=== PATIENT | male | born 1940 | race Caucasian/White ===

== ENCOUNTER → 2018-01-31 13:16 | Outpatient (CLI) | payer MEDICARE, BC, SELFPAY ==
--- NOTE | 2018-01-31 13:32 | XR_ITS ---
XR chest 2V HISTORY: ITS.REASON: HTN ORDERING PHYSICIAN: Vishnu Valadez MD PATIENT AGE: 77 years COMPARISON: None FINDINGS: The cardiomediastinal silhouette and pulmonary vascularity are within normal limits. No lobar consolidation or collapse. There is a small parenchymal opacity left lung base at 7 mm nonspecific. While millimeter nodular density overlies aortic arch region on the lateral view.. Left subclavian Port-A-Cath is present with the tip in the region of the SVC No acute bony abnormalities. IMPRESSION: 1. No acute finding. 2. Indeterminate 7 mm nodular opacity left lung base. Consider chest CT for more thorough evaluation
[2018-01-31 14:12] LABS: INR 1.03 (0.9-1.1); Prothrombin Time 11.1 seconds (9.4-11.8)
== END ==
PROVIDERS: Visit Provider Family Medicine
DX: Z01.818 Encounter for other preprocedural examination (principal)
CPT/HCPCS: 36415; 71046; 85610; 85730; 93005

== ENCOUNTER → 2018-03-30 14:59 | Outpatient (CLI) | payer MEDICARE, BC, SELFPAY ==
[2018-03-30 15:38] LABS: Blood Urea Nitrogen 24 mg/dL (7-18); Creatinine,Serum 1.79 mg/dL (0.70-1.30); Estimated Glomerular Filt Rate 37 ml/min (>60); GFR (African American) 45 ML/MIN (>60)
== END ==
PROVIDERS: Visit Provider Family Medicine
DX: R91.1 Solitary pulmonary nodule (principal)
CPT/HCPCS: 36415; 82565; 84520

== ENCOUNTER → 2018-04-03 09:23 | Outpatient (CLI) | payer MEDICARE, BC, SELFPAY ==
--- NOTE | 2018-04-03 09:58 | CT_ITS ---
CT chest w con HISTORY: Solitary pulmonary nodule, abnormal chest x-ray ITS.REASON: LUNG NODULE ORDERING PHYSICIAN: Vishnu Valadez MD PATIENT AGE: 77 years COMPARISON: 01/31/2018 TECHNIQUE: Axial images obtained following the administration of 75 mL of Isovue 370 . Sagittal, and coronal reformatted images are also generated and reviewed. All CT scans at the facility use one or more dose reduction, viz: automated exposure control, ma/kV adjustment per patient size (including targeted exams where dose is matched to indication, i.e. head), or iterative reconstruction technique. FINDINGS: No mediastinal or hilar mass or adenopathy. No evidence of aortic aneurysm or central pulmonary embolus. Normal heart size. There is a 3 mm noncalcified nodule right upper lobe inferiorly. A 4 mm groundglass nodules present in the left apex. A 7 x 4 mm parenchymal opacity is present in the left lung base laterally corresponding to the radiographic abnormality and may be due to an area of parenchymal fibrosis. Six-month follow-up suggested to confirm stability. There is mild degree of motion artifact. No lobar consolidation or collapse. No effusions. 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 The stenotic segment measures approximately 1 cm in length. IMPRESSION: 1. Radiographic abnormality corresponds to 7 x 4 mm noncalcified nodular opacity which could represent an area of parenchymal fibrosis. Six-month follow-up suggested. In addition there is a 3 mm right upper lobe nodule and 4 mm groundglass nodule in the left apex. These are nonspecific 2. 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
--- NOTE | 2018-04-03 10:11 | HMH.ITSHM ---
IRBESARTAN HCTZ 300, 12.5MG; METOPROLOL SUCC ER 50MG; CLOPIDOGREL 75MG; TAMSULOSIN HCL 0.4MG; VITAMIN D3; VITAMIN B-12; LORATADINE 10MG; CLOTRIMAZOLE - BETAMETHASONE CREAM; DICLOFENAC SODIUM TOPICAL GEL; CLINDAMYCIN HCL 300MG
== END ==
PROVIDERS: PCP Podiatrist; Visit Provider Family Medicine
DX: R91.1 Solitary pulmonary nodule (principal)
CPT/HCPCS: 71260; Q9967

== ENCOUNTER → 2018-07-09 09:28 | Outpatient (CLI) | payer MEDICARE, BC, SELFPAY ==
--- NOTE | 2018-07-09 10:05 | CT_ITS ---
CT chest w con HISTORY: Follow-up pulmonary nodule ITS.REASON: PULMONARY NODULE ORDERING PHYSICIAN: Referral Provider, PATIENT AGE: 78 years COMPARISON: 04/03/2018 TECHNIQUE: Axial images obtained following the administration of 75 mL of Isovue 370 . Sagittal, and coronal reformatted images are also generated and reviewed. All CT scans at the facility use one or more dose reduction, viz: automated exposure control, ma/kV adjustment per patient size (including targeted exams where dose is matched to indication, i.e. head), or iterative reconstruction technique. FINDINGS: Mediport catheter is in place from left subclavian approach. There is been prior right shoulder replacement. No mediastinal or hilar mass or adenopathy. Coronary artery calcifications are present. No change in the 3 mm noncalcified nodule in the right upper lobe anteriorly image #[id number]. A 4 mm opacity is present in the left lung base. Previously there was some atelectatic change around this nodule causes metallic larger. No suspicious pulmonary nodules evident. No effusions or infiltrates. No acute bony anomalies. Upper abdominal images are unremarkable. IMPRESSION: No suspicious pulmonary nodules evident. Left lower lobe nodular opacity appears less apparent likely due to resolved overlying atelectatic changes adjacent to the benign-appearing nodule.
== END ==
PROVIDERS: PCP Family Medicine; Referring Provider Internal Medicine Hematology & Oncology
DX: C90.00 Multiple myeloma not having achieved remission (principal); R91.1 Solitary pulmonary nodule
CPT/HCPCS: 71260; Q9967

== ENCOUNTER → 2019-01-04 12:32 | Outpatient (CLI) | payer MEDICARE, BC, SELFPAY ==
[2019-01-04 13:00] LABS: Blood Urea Nitrogen 20 mg/dL (7-18); Creatinine,Serum 1.67 mg/dL (0.70-1.30); Estimated Glomerular Filt Rate 40 ml/min (>60); GFR (African American) 49 ML/MIN (>60)
--- NOTE | 2019-01-04 13:40 | CT_ITS ---
CT chest w con HISTORY: Follow-up pulmonary nodule ITS.REASON: LUNG NODULE ORDERING PHYSICIAN: Vishnu Valadez MD PATIENT AGE: 78 years COMPARISON: 07/09/2018 TECHNIQUE: Axial images obtained following the administration of 75 mL of Optiray 350 . Sagittal, and coronal reformatted images are also generated and reviewed. All CT scans at the facility use one or more dose reduction, viz: automated exposure control, ma/kV adjustment per patient size (including targeted exams where dose is matched to indication, i.e. head), or iterative reconstruction technique. FINDINGS: Left subclavian Mediport catheter present. No evidence of aortic aneurysm or central pulmonary embolus. No mediastinal or hilar adenopathy or mass. No change in the 3 mm noncalcified nodule right upper lobe. Calcified granuloma is present in the lingula. No new nodules are evident. There are mild dependent changes in the lung bases. IMPRESSION: Stable CT appearance of the chest. No acute finding. No suspicious pulmonary nodules apparent
== END ==
PROVIDERS: Visit Provider Family Medicine
DX: R91.1 Solitary pulmonary nodule (principal)
CPT/HCPCS: 36415; 71260; 82565; 84520; Q9967

== ENCOUNTER → 2019-04-02 10:11 | Outpatient (POV) | payer MEDICARE, BC, SELFPAY | PROVIDERS: Visit Provider Dermatology | DX: Z00.00 Encounter for general adult medical examination without abnormal findings (principal) ==

== ENCOUNTER → 2019-06-11 15:49 | Outpatient (POV) | payer MEDICARE, BC, SELFPAY | PROVIDERS: Visit Provider Dermatology | DX: Z00.00 Encounter for general adult medical examination without abnormal findings (principal) ==

== ENCOUNTER 2019-06-20 10:40 | Outpatient (CLI) | payer MEDICARE, BC, SELFPAY ==
[2019-06-20 10:47] VITALS: BMI 28.9
[2019-06-20 11:39] LABS: Basophils # 0.1 K/mm3 (0-0.2); Basophils % 0.7 % (0.1-2.0); Eosinophils # 0.1 K/mm3 (0.0-0.4); Eosinophils % 1.8 % (0.1-12.0); Hemoglobin 16.5 g/dL (14.1-18.0); Lymphocytes # 2.6 K/mm3 (0.7-4.5); Lymphocytes % 33.1 % (10-50); Mean Corpuscular HGB Conc 32.4 g/dL (31.8-35.4); Mean Corpuscular Hemoglobin 32.7 pg (27.0-31.2); Mean Corpuscular Volume 100.9 fl (80-94); Monocytes # 0.6 K/mm3 (0.1-1.0); Monocytes % 7.3 % (1.7-9.3); Neutrophils # 4.4 K/mm3 (1.8-7.8); Platelet Count 169 K/mm3 (142-424); Red Blood Count 5.06 M/mm3 (4.60-6.20); Red Cell Distribution Width 13.6 % (11.5-17.5); White Blood Count 7.8 K/mm3 (4.8-10.8)
[2019-06-20 11:50] LABS: Alanine Aminotransferase 26 U/L (12-78); Albumin Level 3.5 gm/dL (3.4-5.0); Albumin/Globulin Ratio 1.1 (1.1-1.8); Alkaline Phosphatase 76 U/L (46-116); Anion Gap 11.9 mEq/L (5-15); Aspartate Amino Transferase 20 U/L (15-37); Bilirubin,Total 0.8 mg/dL (0.2-1.0); Blood Urea Nitrogen 25 mg/dL (7-18); Calcium 9.3 mg/dL (8.5-10.1); Carbon Dioxide 28 mmol/L (21.0-32.0); Chloride 106 mmol/L (98-107); Creatinine Clearance Estimated 49 mL/min (50-200); Creatinine,Serum 1.62 mg/dL (0.70-1.30); Estimated Glomerular Filt Rate 42 ml/min (>60); GFR (African American) 50 ML/MIN (>60); Globulin 3.1 gm/dl (1.3-3.2); Glucose 100 mg/dL (74-106); Potassium 3.9 mmoL/L (3.5-5.1); Sodium 142 mmol/L (136-145); Total Protein,Serum 6.6 gm/dL (6.4-8.2)
[2019-06-21 15:31] LABS: Albumin 3.5 g/dL (2.9-4.4); Alpha-1-Globulin 0.2 g/dL (0.0-0.4); Alpha-2-Globulin 0.7 g/dL (0.4-1.0); Gamma Globulin 0.8 g/dL (0.4-1.8); Immunoglobulin A, Qn 66 mg/dL (61-437); Immunoglobulin G, Qn 846 mg/dL (700-1600); Protein, Total 6.2 g/dL (6.0-8.5)
[2019-06-21 17:28] LABS: Immunoglobulin G, Qn 815 mg/dL (700-1600); Immunoglobulin M, Qn 15 mg/dL (15-143)
[2019-06-21 17:29] LABS: Immunoglobulin A, Qn 73 mg/dL (61-437); Immunoglobulin M, Qn 16 mg/dL (15-143)
== END 2019-06-20 11:35 | disposition home or self-care (01) ==
LOC: INF 10:45
PROVIDERS: PCP Family Medicine; Visit Provider Internal Medicine Medical Oncology
DX: Z51.11 Encounter for antineoplastic chemotherapy (principal); C90.00 Multiple myeloma not having achieved remission; Z45.2 Encounter for adjustment and management of vascular access device
CPT/HCPCS: 80053; 82784; 83883; 84155; 84165; 85025; 86334; J1642

== ENCOUNTER 2019-06-25 13:27 | Outpatient (CLI) | payer MEDICARE, BC, SELFPAY ==
[2019-06-25 13:29] VITALS: BMI 28.9
--- NOTE | 2019-06-25 13:40 | PC.NURSE ---
1330-pt here for repeat lab draw for sflc, peripheral stick in right ac to collect 2 red tops;sent to lab.
[2019-06-27 16:27] LABS: Free Kappa Lt Chains 15.2 mg/L (3.3-19.4); Free Lambda Lt Chains 10.5 mg/L (5.7-26.3)
== END 2019-06-25 13:40 | disposition home or self-care (01) ==
LOC: INF 13:27
PROVIDERS: PCP Family Medicine; Visit Provider Internal Medicine Medical Oncology
DX: Z45.2 Encounter for adjustment and management of vascular access device (principal); C90.00 Multiple myeloma not having achieved remission
CPT/HCPCS: 83883

== ENCOUNTER 2019-09-19 08:58 | Outpatient (CLI) | payer MEDICARE, BC, SELFPAY ==
[2019-09-19 08:58] VITALS: BMI 28.9
[2019-09-19 09:27] LABS: Basophils # 0.1 K/mm3 (0-0.2); Basophils % 0.8 % (0.1-2.0); Eosinophils # 0.3 K/mm3 (0.0-0.4); Eosinophils % 3.4 % (0.1-12.0); Hematocrit 47.6 % (42.0-52.0); Hemoglobin 16.2 g/dL (14.1-18.0); Lymphocytes # 3.5 K/mm3 (0.7-4.5); Mean Corpuscular HGB Conc 34.1 g/dL (31.8-35.4); Mean Corpuscular Hemoglobin 32.9 pg (27.0-31.2); Mean Corpuscular Volume 96.5 fl (80-94); Mean Platelet Volume 7.9 fl (7.4-10.4); Monocytes # 0.7 K/mm3 (0.1-1.0); Monocytes % 8.9 % (1.7-9.3); Neutrophils % 39.9 % (37.0-80.0); Platelet Count 185 K/mm3 (142-424); Red Blood Count 4.93 M/mm3 (4.60-6.20); Red Cell Distribution Width 13.3 % (11.5-17.5); White Blood Count 7.4 K/mm3 (4.8-10.8)
[2019-09-19 09:38] LABS: Alanine Aminotransferase 31 U/L (12-78); Albumin Level 3.2 gm/dL (3.4-5.0); Albumin/Globulin Ratio 1.1 (1.1-1.8); Alkaline Phosphatase 73 U/L (46-116); Aspartate Amino Transferase 25 U/L (15-37); Bilirubin,Total 0.8 mg/dL (0.2-1.0); Blood Urea Nitrogen 22 mg/dL (7-18); Calcium 9.1 mg/dL (8.5-10.1); Carbon Dioxide 29 mmol/L (21.0-32.0); Chloride 104 mmol/L (98-107); Creatinine Clearance Estimated 45 mL/min (50-200); Creatinine,Serum 1.71 mg/dL (0.70-1.30); Estimated Glomerular Filt Rate 39 ml/min (>60); GFR (African American) 47 ML/MIN (>60); Glucose 100 mg/dL (74-106); Sodium 140 mmol/L (136-145); Total Protein,Serum 6.2 gm/dL (6.4-8.2)
[2019-09-20 10:14] LABS: Immunoglobulin A, Qn 75 mg/dL (61-437)
[2019-09-20 11:01] LABS: Immunoglobulin G, Qn 818 mg/dL (700-1600); Immunoglobulin M, Qn 80 mg/dL (15-143)
[2019-09-20 14:19] LABS: Free Kappa Lt Chains 17.2 mg/L (3.3-19.4); Free Lambda Lt Chains 12.5 mg/L (5.7-26.3)
[2019-09-20 16:59] LABS: Albumin 3.4 g/dL (2.9-4.4); Alpha-1-Globulin 0.2 g/dL (0.0-0.4); Alpha-2-Globulin 0.7 g/dL (0.4-1.0); Gamma Globulin 0.8 g/dL (0.4-1.8); Protein, Total 5.9 g/dL (6.0-8.5)
[2019-09-23 15:10] LABS: Immunoglobulin A, Qn 80 mg/dL (61-437); Immunoglobulin G, Qn 835 mg/dL (700-1600)
[2019-09-25 17:37] LABS: Immunoglobulin M, Qn 81 mg/dL (15-143)
== END 2019-09-19 09:19 | disposition home or self-care (01) ==
LOC: INF 08:58
PROVIDERS: Visit Provider Internal Medicine Medical Oncology
DX: C90.00 Multiple myeloma not having achieved remission (principal)
CPT/HCPCS: 80053; 82784; 83883; 84155; 84165; 85025; 86334; J1642

== ENCOUNTER 2019-12-09 10:07 | Outpatient (CLI) | payer MEDICARE, BC, SELFPAY ==
[2019-12-09 10:05] VITALS: BP 149/80; PULSE 85; RESP 18; TEMP 36.8; O2SAT 93
[2019-12-09 10:08] VITALS: BMI 29.5
[2019-12-09 10:14] VITALS: BP 149/80; PULSE 85; RESP 20; TEMP 36.8; O2SAT 93
[2019-12-09 10:24] LABS: Basophils % 0.6 % (0.1-2.0); Eosinophils # 0.2 K/mm3 (0.0-0.4); Eosinophils % 3.5 % (0.1-12.0); Hematocrit 48.9 % (42.0-52.0); Hemoglobin 16.6 g/dL (14.1-18.0); Lymphocytes # 3.2 K/mm3 (0.7-4.5); Mean Corpuscular HGB Conc 34.1 g/dL (31.8-35.4); Mean Corpuscular Hemoglobin 32.8 pg (27.0-31.2); Mean Corpuscular Volume 96.2 fl (80-94); Mean Platelet Volume 8.2 fl (7.4-10.4); Monocytes # 0.6 K/mm3 (0.1-1.0); Monocytes % 8.5 % (1.7-9.3); Neutrophils # 2.7 K/mm3 (1.8-7.8); Neutrophils % 40.3 % (37.0-80.0); Platelet Count 168 K/mm3 (142-424); Red Blood Count 5.08 M/mm3 (4.60-6.20); Red Cell Distribution Width 13.3 % (11.5-17.5); White Blood Count 6.8 K/mm3 (4.8-10.8)
[2019-12-09 10:27] LABS: Chloride 103 mmol/L (98-107); Potassium 3.7 mmoL/L (3.5-5.1); Sodium 139 mmol/L (136-145)
[2019-12-09 10:30] LABS: Alanine Aminotransferase 26 U/L (12-78); Albumin Level 3.8 g/dl (3.5-5.0); Albumin/Globulin Ratio 1.5 (1.1-1.8); Alkaline Phosphatase 70 U/L (38-126); Anion Gap 11.7 mEq/L (5-15); Aspartate Amino Transferase 30 U/L (17-59); Blood Urea Nitrogen 20 mg/dl (9-20); Carbon Dioxide 28 mmol/L (22.0-30.0); Creatinine Clearance Estimated 50 mL/min (50-200); Estimated Glomerular Filt Rate 42 ml/min (>60); GFR (African American) 51 ML/MIN (>60); Globulin 2.6 g/dL (1.3-3.2); Total Protein,Serum 6.4 g/dl (6.3-8.2)
[2019-12-09 10:31] LABS: Calcium 9.6 mg/dl (8.4-10.2); Glucose 108 mg/dl (74-100)
[2019-12-10 12:59] LABS: Albumin 3.5 g/dL (2.9-4.4); Alpha-1-Globulin 0.2 g/dL (0.0-0.4); Alpha-2-Globulin 0.7 g/dL (0.4-1.0); Gamma Globulin 0.7 g/dL (0.4-1.8); Protein, Total 6.1 g/dL (6.0-8.5)
[2019-12-10 13:08] LABS: Immunoglobulin A, Qn 82 mg/dL (61-437)
[2019-12-10 14:15] LABS: Immunoglobulin G, Qn 786 mg/dL (603-1613); Immunoglobulin M, Qn 28 mg/dL (15-143)
[2019-12-10 14:19] LABS: Free Kappa Lt Chains 14.2 mg/L (3.3-19.4)
== END 2019-12-09 10:14 | disposition home or self-care (01) ==
LOC: INF 10:07
PROVIDERS: Visit Provider Internal Medicine Medical Oncology
DX: C90.00 Multiple myeloma not having achieved remission (principal)
CPT/HCPCS: 80053; 82784; 83883; 84155; 84165; 85025; 86334; J1642

== ENCOUNTER 2020-02-13 10:52 | Outpatient (CLI) | payer MEDICARE, BC, SELFPAY ==
[2020-02-13 10:54] VITALS: BMI 29.5
[2020-02-13 11:16] LABS: Chloride 106 mmol/L (98-107); Potassium 3.4 mmoL/L (3.5-5.1); Sodium 137 mmol/L (136-145)
[2020-02-13 11:17] LABS: Basophils # 0.1 K/mm3 (0-0.2); Eosinophils # 0.1 K/mm3 (0.0-0.4); Eosinophils % 1.6 % (0.1-12.0); Lymphocytes # 2.3 K/mm3 (0.7-4.5); Lymphocytes % 40.8 % (10-50); Mean Corpuscular Hemoglobin 32.7 pg (27.0-31.2); Mean Platelet Volume 8.1 fl (7.4-10.4); Monocytes # 0.7 K/mm3 (0.1-1.0); Monocytes % 11.6 % (1.7-9.3); Neutrophils # 2.5 K/mm3 (1.8-7.8); Platelet Count 175 K/mm3 (142-424); Red Blood Count 4.89 M/mm3 (4.60-6.20); Red Cell Distribution Width 13.8 % (11.5-17.5); White Blood Count 5.6 K/mm3 (4.8-10.8)
[2020-02-13 11:19] LABS: Alanine Aminotransferase 20 U/L (12-78); Albumin Level 3.6 g/dl (3.5-5.0); Albumin/Globulin Ratio 1.5 (1.1-1.8); Alkaline Phosphatase 68 U/L (38-126); Anion Gap 4.4 mEq/L (5-15); Aspartate Amino Transferase 31 U/L (17-59); Bilirubin,Total 1.1 mg/dl (0.2-1.3); Blood Urea Nitrogen 17 mg/dl (9-20); Carbon Dioxide 30 mmol/L (22.0-30.0); Creatinine Clearance Estimated 57 mL/min (50-200); Estimated Glomerular Filt Rate 49 ml/min (>60); GFR (African American) 59 ML/MIN (>60); Globulin 2.4 g/dL (1.3-3.2)
[2020-02-13 11:20] LABS: Calcium 8.7 mg/dl (8.4-10.2); Glucose 98 mg/dl (74-100)
[2020-02-14 13:10] LABS: Immunoglobulin A, Qn 71 mg/dL (61-437)
[2020-02-14 16:11] LABS: Alpha-1-Globulin 0.2 g/dL (0.0-0.4); Alpha-2-Globulin 0.7 g/dL (0.4-1.0); Free Kappa Lt Chains 14.7 mg/L (3.3-19.4); Free Lambda Lt Chains 9.8 mg/L (5.7-26.3); Gamma Globulin 0.6 g/dL (0.4-1.8); Protein, Total 5.4 g/dL (6.0-8.5)
[2020-02-14 17:10] LABS: Immunoglobulin G, Qn 672 mg/dL (603-1613); Immunoglobulin M, Qn 17 mg/dL (15-143)
[2020-02-17 15:13] LABS: Immunoglobulin A, Qn 72 mg/dL (61-437); Immunoglobulin G, Qn 674 mg/dL (603-1613)
[2020-02-18 11:55] LABS: Immunoglobulin M, Qn 16 mg/dL (15-143)
== END 2020-02-13 11:02 | disposition home or self-care (01) ==
LOC: INF 10:52
PROVIDERS: Visit Provider Internal Medicine Medical Oncology
DX: C90.00 Multiple myeloma not having achieved remission (principal)
CPT/HCPCS: 80053; 82784; 83883; 84155; 84165; 85025; 86334; J1642

== ENCOUNTER 2020-05-14 10:32 | Outpatient (CLI) | payer MEDICARE, BC, SELFPAY ==
[2020-05-14 10:33] VITALS: BMI 28.3
[2020-05-14 11:04] LABS: Basophils % 0.3 % (0.1-2.0); Eosinophils # 0.2 K/mm3 (0.0-0.4); Eosinophils % 2.1 % (0.1-12.0); Hematocrit 47.4 % (42.0-52.0); Hemoglobin 16.6 g/dL (14.1-18.0); Lymphocytes % 40.7 % (10-50); Mean Corpuscular Hemoglobin 33.9 pg (27.0-31.2); Mean Platelet Volume 8.1 fl (7.4-10.4); Monocytes # 0.7 K/mm3 (0.1-1.0); Monocytes % 9.9 % (1.7-9.3); Neutrophils # 3.5 K/mm3 (1.8-7.8); Platelet Count 154 K/mm3 (142-424); Red Blood Count 4.88 M/mm3 (4.60-6.20); Red Cell Distribution Width 13.8 % (11.5-17.5); White Blood Count 7.4 K/mm3 (4.8-10.8)
[2020-05-14 11:08] LABS: Chloride 105 mmol/L (98-107); Sodium 140 mmol/L (136-145)
[2020-05-14 11:09] LABS: Potassium 3.5 mmoL/L (3.5-5.1)
[2020-05-14 11:11] LABS: Alanine Aminotransferase 21 U/L (12-78); Albumin Level 3.6 g/dl (3.5-5.0); Albumin/Globulin Ratio 1.4 (1.1-1.8); Alkaline Phosphatase 73 U/L (38-126); Anion Gap 10.5 mEq/L (5-15); Aspartate Amino Transferase 27 U/L (17-59); Bilirubin,Total 1.1 mg/dl (0.2-1.3); Blood Urea Nitrogen 21 mg/dl (9-20); Carbon Dioxide 28 mmol/L (22.0-30.0); Creatinine Clearance Estimated 51 mL/min (50-200); Estimated Glomerular Filt Rate 45 ml/min (>60); GFR (African American) 55 ML/MIN (>60); Globulin 2.6 g/dL (1.3-3.2); Total Protein,Serum 6.2 g/dl (6.3-8.2)
[2020-05-14 11:12] LABS: Calcium 9.3 mg/dl (8.4-10.2); Glucose 117 mg/dl (74-100)
[2020-05-15 15:10] LABS: Immunoglobulin A, Qn 92 mg/dL (61-437); Immunoglobulin G, Qn 721 mg/dL (603-1613)
[2020-05-15 17:20] LABS: Immunoglobulin M, Qn 14 mg/dL (15-143)
[2020-05-15 17:55] LABS: Albumin 3.3 g/dL (2.9-4.4); Alpha-1-Globulin 0.2 g/dL (0.0-0.4); Alpha-2-Globulin 0.9 g/dL (0.4-1.0); Free Kappa Lt Chains 18.5 mg/L (3.3-19.4); Free Lambda Lt Chains 10.8 mg/L (5.7-26.3); Gamma Globulin 0.7 g/dL (0.4-1.8); Protein, Total 5.9 g/dL (6.0-8.5)
== END 2020-05-14 10:55 | disposition home or self-care (01) ==
LOC: INF 10:32
PROVIDERS: Visit Provider Internal Medicine Medical Oncology
DX: C90.00 Multiple myeloma not having achieved remission (principal)
CPT/HCPCS: 80053; 82784; 83883; 84155; 84165; 85025; 86334; J1642

== ENCOUNTER → 2020-08-13 10:18 | Outpatient (CLI) | payer MEDICARE, BC, SELFPAY ==
[2020-08-13 10:40] VITALS: BMI 28.5
[2020-08-13 11:12] LABS: Basophils % 0.2 % (0.1-2.0); Eosinophils % 0.6 % (0.1-12.0); Hematocrit 54.9 % (42.0-52.0); Hemoglobin 16.3 g/dL (14.1-18.0); Lymphocytes # 1.9 K/mm3 (0.7-4.5); Lymphocytes % 28.4 % (10-50); Mean Corpuscular HGB Conc 29.7 g/dL (31.8-35.4); Mean Corpuscular Hemoglobin 32.5 pg (27.0-31.2); Mean Corpuscular Volume 109.4 fl (80-94); Mean Platelet Volume 13.1 fl (7.4-10.4); Monocytes # 0.7 K/mm3 (0.1-1.0); Monocytes % 10.3 % (1.7-9.3); Neutrophils % 60.4 % (37.0-80.0); Platelet Count 178 K/mm3 (142-424); Red Blood Count 5.02 M/mm3 (4.60-6.20); Red Cell Distribution Width 15.5 % (11.5-17.5); White Blood Count 6.6 K/mm3 (4.8-10.8)
[2020-08-13 11:54] LABS: Chloride 103 mmol/L (98-107); Potassium 3.1 mmoL/L (3.5-5.1); Sodium 138 mmol/L (136-145)
[2020-08-13 11:57] LABS: Alanine Aminotransferase 18 U/L (12-78); Albumin Level 3.8 g/dl (3.5-5.0); Albumin/Globulin Ratio 1.4 (1.1-1.8); Alkaline Phosphatase 80 U/L (38-126); Anion Gap 9.1 mEq/L (5-15); Aspartate Amino Transferase 32 U/L (17-59); Bilirubin,Total 1.2 mg/dl (0.2-1.3); Blood Urea Nitrogen 23 mg/dl (9-20); Carbon Dioxide 29 mmol/L (22.0-30.0); Creatinine Clearance Estimated 54 mL/min (50-200); Estimated Glomerular Filt Rate 49 ml/min (>60); GFR (African American) 59 ML/MIN (>60); Globulin 2.7 g/dL (1.3-3.2); Total Protein,Serum 6.5 g/dl (6.3-8.2)
[2020-08-13 11:58] LABS: Calcium 9.4 mg/dl (8.4-10.2); Glucose 112 mg/dl (74-100)
[2020-08-14 15:17] LABS: Immunoglobulin A, Qn 99 mg/dL (61-437); Immunoglobulin G, Qn 791 mg/dL (603-1613)
[2020-08-14 15:34] LABS: Immunoglobulin M, Qn 15 mg/dL (15-143)
[2020-08-14 18:37] LABS: Albumin 3.5 g/dL (2.9-4.4); Alpha-1-Globulin 0.2 g/dL (0.0-0.4); Alpha-2-Globulin 0.9 g/dL (0.4-1.0); Free Kappa Lt Chains 16.2 mg/L (3.3-19.4); Free Lambda Lt Chains 10.4 mg/L (5.7-26.3); Gamma Globulin 0.7 g/dL (0.4-1.8)
[2020-08-16 08:21] LABS: Varicella Zoster IgG 388 index (Immune >165)
== END ==
PROVIDERS: Visit Provider Internal Medicine Medical Oncology
DX: C90.01 Multiple myeloma in remission (principal)
CPT/HCPCS: 80053; 82784; 83883; 84155; 84165; 85025; 86334; 86787; J1642

== ENCOUNTER 2020-11-12 10:32 | Outpatient (CLI) | payer MEDICARE, BC, SELFPAY ==
[2020-11-12 10:51] VITALS: BMI 27.3
[2020-11-12 11:07] LABS: Basophils % 0.4 % (0.1-2.0); Eosinophils # 0.2 K/mm3 (0.0-0.4); Eosinophils % 2.4 % (0.1-12.0); Hematocrit 46.9 % (42.0-52.0); Hemoglobin 14.6 g/dL (14.1-18.0); Lymphocytes # 2.9 K/mm3 (0.7-4.5); Mean Corpuscular HGB Conc 31.2 g/dL (31.8-35.4); Mean Corpuscular Hemoglobin 31.9 pg (27.0-31.2); Mean Corpuscular Volume 102.5 fl (80-94); Mean Platelet Volume 7.7 fl (7.4-10.4); Monocytes # 0.6 K/mm3 (0.1-1.0); Neutrophils # 3.1 K/mm3 (1.8-7.8); Neutrophils % 45.1 % (37.0-80.0); Platelet Count 178 K/mm3 (142-424); Red Blood Count 4.57 M/mm3 (4.60-6.20); Red Cell Distribution Width 13.6 % (11.5-17.5); White Blood Count 6.8 K/mm3 (4.8-10.8)
[2020-11-12 11:22] LABS: Chloride 106 mmol/L (98-107); Potassium 3.6 mmoL/L (3.5-5.1); Sodium 139 mmol/L (136-145)
[2020-11-12 11:25] LABS: Alanine Aminotransferase 28 U/L (12-78); Albumin Level 3.7 g/dl (3.5-5.0); Albumin/Globulin Ratio 1.4 (1.1-1.8); Alkaline Phosphatase 80 U/L (38-126); Anion Gap 9.6 mEq/L (5-15); Aspartate Amino Transferase 37 U/L (17-59); Bilirubin,Total 0.9 mg/dl (0.2-1.3); Blood Urea Nitrogen 24 mg/dl (9-20); Calcium 9.2 mg/dl (8.4-10.2); Carbon Dioxide 27 mmol/L (22.0-30.0); Creatinine Clearance Estimated 52 mL/min (50-200); Estimated Glomerular Filt Rate 49 ml/min (>60); GFR (African American) 59 ML/MIN (>60); Globulin 2.7 g/dL (1.3-3.2); Glucose 93 mg/dl (74-100); Total Protein,Serum 6.4 g/dl (6.3-8.2)
[2020-11-13 20:51] LABS: Immunoglobulin A, Qn 120 mg/dL (61-437); Immunoglobulin G, Qn 768 mg/dL (603-1613)
[2020-11-14 08:50] LABS: Immunoglobulin M, Qn 14 mg/dL (15-143)
[2020-11-19 11:45] LABS: Albumin 3.2; Alpha-1-Globulin 0.2; Protein, Total 5.7
[2020-11-19 11:46] LABS: Alpha-2-Globulin 0.7; Gamma Globulin 0.6
[2020-11-19 11:48] LABS: Free Kappa Lt Chains 17.8; Free Lambda Lt Chains 10.6
== END 2020-11-12 11:45 | disposition home or self-care (01) ==
LOC: INF 10:32
PROVIDERS: Visit Provider Internal Medicine Medical Oncology
DX: C90.00 Multiple myeloma not having achieved remission (principal); Z45.2 Encounter for adjustment and management of vascular access device
CPT/HCPCS: 80053; 82784; 83883; 84155; 84165; 85025; 86334; J1642

== ENCOUNTER 2021-02-11 09:44 | Outpatient (CLI) | payer MEDICARE, BC, SELFPAY ==
[2021-02-11 09:47] VITALS: BMI 28.3
--- NOTE | 2021-02-11 10:08 | PC.NURSE ---
unable to obtain enough blood from pac for labs as ordered. venipuncture performed using butterfly to pt's lt ac to obtain remainder of blood needed for labs per joselito smith rn.
[2021-02-11 10:25] LABS: Basophils % 0.4 % (0.1-2.0); Eosinophils # 0.1 K/mm3 (0.0-0.4); Eosinophils % 1.3 % (0.1-12.0); Hematocrit 41.9 % (42.0-52.0); Hemoglobin 14.1 g/dL (14.1-18.0); Lymphocytes # 3.6 K/mm3 (0.7-4.5); Lymphocytes % 48.1 % (10-50); Mean Corpuscular HGB Conc 33.6 g/dL (31.8-35.4); Mean Corpuscular Hemoglobin 32.8 pg (27.0-31.2); Mean Corpuscular Volume 97.6 fl (80-94); Mean Platelet Volume 8.2 fl (7.4-10.4); Monocytes # 0.5 K/mm3 (0.1-1.0); Monocytes % 6.6 % (1.7-9.3); Neutrophils # 3.3 K/mm3 (1.8-7.8); Neutrophils % 43.5 % (37.0-80.0); Platelet Count 193 K/mm3 (142-424); Red Blood Count 4.29 M/mm3 (4.60-6.20); Red Cell Distribution Width 13.1 % (11.5-17.5); White Blood Count 7.6 K/mm3 (4.8-10.8)
[2021-02-11 10:39] LABS: Alanine Aminotransferase 18 U/L (12-78); Albumin Level 3.7 g/dl (3.5-5.0); Albumin/Globulin Ratio 1.4 (1.1-1.8); Alkaline Phosphatase 86 U/L (38-126); Anion Gap 7.8 mEq/L (5-15); Aspartate Amino Transferase 39 U/L (17-59); Bilirubin,Total 0.8 mg/dl (0.2-1.3); Blood Urea Nitrogen 25 mg/dl (9-20); Calcium 8.9 mg/dl (8.4-10.2); Carbon Dioxide 29 mmol/L (22.0-30.0); Chloride 105 mmol/L (98-107); Creatinine Clearance Estimated 58 mL/min (50-200); Estimated Glomerular Filt Rate 53 ml/min (>60); GFR (African American) 65 ML/MIN (>60); Globulin 2.6 g/dL (1.3-3.2); Glucose 97 mg/dl (74-100); Potassium 3.8 mmoL/L (3.5-5.1); Sodium 138 mmol/L (136-145); Total Protein,Serum 6.3 g/dl (6.3-8.2)
[2021-02-12 16:40] LABS: Albumin 3.2 g/dL (2.9-4.4); Alpha-1-Globulin 0.2 g/dL (0.0-0.4); Alpha-2-Globulin 0.7 g/dL (0.4-1.0); Gamma Globulin 0.7 g/dL (0.4-1.8); Protein, Total 5.7 g/dL (6.0-8.5)
[2021-02-15 12:10] LABS: Immunoglobulin A, Qn 145 mg/dL (61-437); Immunoglobulin G, Qn 769 mg/dL (603-1613); Immunoglobulin M, Qn 14 mg/dL (15-143)
[2021-02-21 10:58] LABS: Free Kappa Lt Chains 19.3; Free Lambda Lt Chains 12.5
== END 2021-02-11 11:30 | disposition home or self-care (01) ==
LOC: INF 09:44
PROVIDERS: Visit Provider Internal Medicine Medical Oncology
DX: Z45.2 Encounter for adjustment and management of vascular access device (principal); C90.00 Multiple myeloma not having achieved remission
CPT/HCPCS: 80053; 82784; 83883; 84155; 84165; 85025; 86334; J1642

== ENCOUNTER 2021-03-24 10:07 | Outpatient (CLI) | payer MEDICARE, BC, SELFPAY | END 2021-03-24 10:15 | disposition home or self-care (01) | LOC: INF 10:07 | PROVIDERS: Visit Provider Internal Medicine Medical Oncology | DX: Z45.2 Encounter for adjustment and management of vascular access device (principal); C90.00 Multiple myeloma not having achieved remission | CPT/HCPCS: 96523; J1642 ==

== ENCOUNTER 2021-05-13 10:04 | Outpatient (CLI) | payer MEDICARE, BC, SELFPAY ==
[2021-05-13 10:12] VITALS: BMI 27.0
[2021-05-13 10:45] LABS: Basophils # 0.1 K/mm3 (0-0.2); Basophils % 0.6 % (0.1-2.0); Eosinophils # 0.3 K/mm3 (0.0-0.4); Hemoglobin 15.3 g/dL (14.1-18.0); Lymphocytes # 3.6 K/mm3 (0.7-4.5); Mean Corpuscular HGB Conc 32.5 g/dL (31.8-35.4); Mean Corpuscular Hemoglobin 32.2 pg (27.0-31.2); Mean Corpuscular Volume 99.2 fl (80-94); Mean Platelet Volume 8.4 fl (7.4-10.4); Monocytes # 0.7 K/mm3 (0.1-1.0); Monocytes % 7.9 % (1.7-9.3); Neutrophils # 3.8 K/mm3 (1.8-7.8); Neutrophils % 45.5 % (37.0-80.0); Platelet Count 194 K/mm3 (142-424); Red Blood Count 4.73 M/mm3 (4.60-6.20); Red Cell Distribution Width 14.1 % (11.5-17.5); White Blood Count 8.4 K/mm3 (4.8-10.8)
[2021-05-13 10:46] LABS: Chloride 109 mmol/L (98-107); Potassium 3.8 mmoL/L (3.5-5.1); Sodium 142 mmol/L (136-145)
[2021-05-13 10:49] LABS: Alanine Aminotransferase 24 U/L (12-78); Albumin Level 3.5 g/dl (3.5-5.0); Albumin/Globulin Ratio 1.3 (1.1-1.8); Alkaline Phosphatase 93 U/L (38-126); Anion Gap 11.8 mEq/L (5-15); Aspartate Amino Transferase 31 U/L (17-59); Bilirubin,Total 0.6 mg/dl (0.2-1.3); Blood Urea Nitrogen 26 mg/dl (9-20); Carbon Dioxide 25 mmol/L (22.0-30.0); Creatinine Clearance Estimated 51 mL/min (50-200); Estimated Glomerular Filt Rate 49 ml/min (>60); GFR (African American) 59 ML/MIN (>60); Globulin 2.6 g/dL (1.3-3.2); Glucose 93 mg/dl (74-100); Total Protein,Serum 6.1 g/dl (6.3-8.2)
[2021-05-14 17:40] LABS: Albumin 3.5 g/dL (2.9-4.4); Alpha-1-Globulin 0.2 g/dL (0.0-0.4); Alpha-2-Globulin 0.7 g/dL (0.4-1.0); Gamma Globulin 0.7 g/dL (0.4-1.8); Immunoglobulin A, Qn 179 mg/dL (61-437); Immunoglobulin G, Qn 849 mg/dL (603-1613); Immunoglobulin M, Qn 24 mg/dL (15-143)
[2021-05-29 16:15] LABS: Free Kappa Lt Chains 24.9; Free Lambda Lt Chains 14.6
== END 2021-05-13 10:30 | disposition home or self-care (01) ==
LOC: INF 10:06
PROVIDERS: PCP Family Medicine; Visit Provider Internal Medicine Medical Oncology
DX: C90.00 Multiple myeloma not having achieved remission (principal); Z45.2 Encounter for adjustment and management of vascular access device
CPT/HCPCS: 80053; 82784; 83883; 84155; 84165; 85025; 86334; J1642

== ENCOUNTER 2021-06-29 10:58 | Outpatient (CLI) | payer MEDICARE, BC, SELFPAY | END 2021-06-29 11:15 | disposition home or self-care (01) | LOC: INF 11:00 | PROVIDERS: PCP Family Medicine; Visit Provider Internal Medicine Medical Oncology | DX: Z45.2 Encounter for adjustment and management of vascular access device (principal) | CPT/HCPCS: 96523; J1642 ==

== ENCOUNTER → 2021-08-12 09:48 | Outpatient (CLI) | payer MEDICARE, BC, SELFPAY ==
[2021-08-12 10:03] VITALS: BMI 27.7
[2021-08-12 10:42] LABS: Basophils # 0.1 K/mm3 (0-0.2); Basophils % 1.6 % (0.1-2.0); Eosinophils # 0.2 K/mm3 (0.0-0.4); Eosinophils % 3.1 % (0.1-12.0); Hemoglobin 14.9 g/dL (14.1-18.0); Lymphocytes # 3.9 K/mm3 (0.7-4.5); Lymphocytes % 53.6 % (10-50); Mean Corpuscular HGB Conc 33.8 g/dL (31.8-35.4); Mean Corpuscular Hemoglobin 32.7 pg (27.0-31.2); Mean Corpuscular Volume 96.8 fl (80-94); Mean Platelet Volume 8.1 fl (7.4-10.4); Monocytes # 0.7 K/mm3 (0.1-1.0); Monocytes % 9.6 % (1.7-9.3); Neutrophils # 2.3 K/mm3 (1.8-7.8); Neutrophils % 32.2 % (37.0-80.0); Platelet Count 204 K/mm3 (142-424); Red Blood Count 4.55 M/mm3 (4.60-6.20); White Blood Count 7.3 K/mm3 (4.8-10.8)
[2021-08-12 10:44] LABS: MANUAL DIFFERENTIAL MANUAL DIFFERENTIAL (MANUAL DIFF)
[2021-08-12 10:48] LABS: Alanine Aminotransferase 26 U/L (12-78); Albumin Level 3.7 g/dl (3.5-5.0); Albumin/Globulin Ratio 1.5 (1.1-1.8); Alkaline Phosphatase 76 U/L (38-126); Anion Gap 5.9 mEq/L (5-15); Aspartate Amino Transferase 41 U/L (17-59); Bilirubin,Total 0.8 mg/dl (0.2-1.3); Blood Urea Nitrogen 25 mg/dl (9-20); Calcium 9.2 mg/dl (8.4-10.2); Carbon Dioxide 29 mmol/L (22.0-30.0); Chloride 105 mmol/L (98-107); Creatinine Clearance Estimated 48 mL/min (50-200); Estimated Glomerular Filt Rate 45 ml/min (>60); GFR (African American) 55 ML/MIN (>60); Globulin 2.5 g/dL (1.3-3.2); Glucose 90 mg/dl (74-100); Potassium 3.9 mmoL/L (3.5-5.1); Sodium 136 mmol/L (136-145); Total Protein,Serum 6.2 g/dl (6.3-8.2)
[2021-08-12 11:52] LABS: Eosinophils % 4 % (0-3); Lymphocytes % 60 % (10-50); Monocytes % 9 % (2-9); Neutrophils % 27 % (42-76); Platelet Estimate Normal; RBC Morphology Normal; Total Cells Counted 100
[2021-08-13 11:37] LABS: Immunoglobulin A, Qn 205 mg/dL (61-437); Immunoglobulin G, Qn 828 mg/dL (603-1613); Immunoglobulin M, Qn 19 mg/dL (15-143)
[2021-08-13 16:12] LABS: Albumin 3.5 g/dL (2.9-4.4); Alpha-1-Globulin 0.2 g/dL (0.0-0.4); Alpha-2-Globulin 0.6 g/dL (0.4-1.0); Gamma Globulin 0.7 g/dL (0.4-1.8); Protein, Total 5.9 g/dL (6.0-8.5)
[2021-08-17 10:15] LABS: Immunoglobulin A, Qn 210 mg/dL (61-437); Immunoglobulin G, Qn 819 mg/dL (603-1613); Immunoglobulin M, Qn 20 mg/dL (15-143)
[2021-10-21 12:54] LABS: Free Kappa Lt Chains 19.7; Free Lambda Lt Chains 12.5
== END ==
PROVIDERS: PCP Family Medicine; Visit Provider Internal Medicine Medical Oncology
DX: Z45.2 Encounter for adjustment and management of vascular access device (principal); C90.00 Multiple myeloma not having achieved remission
CPT/HCPCS: 80053; 82784; 83883; 84155; 84165; 85007; 85025; 86334; J1642

== ENCOUNTER 2021-09-22 11:25 | Outpatient (CLI) | payer MEDICARE, BC, SELFPAY | END 2021-09-22 11:45 | disposition home or self-care (01) | LOC: INF 11:27 | PROVIDERS: PCP Family Medicine; Visit Provider Internal Medicine Medical Oncology | DX: Z45.2 Encounter for adjustment and management of vascular access device (principal) | CPT/HCPCS: 96523; J1642 ==

== ENCOUNTER 2021-11-04 10:00 | Outpatient (CLI) | payer MEDICARE, BC, SELFPAY ==
[2021-11-04 10:07] VITALS: BMI 28.3
[2021-11-04 10:37] LABS: Basophils # 0.1 K/mm3 (0-0.2); Basophils % 1.1 % (0.1-2.0); Eosinophils # 0.3 K/mm3 (0.0-0.4); Eosinophils % 3.4 % (0.1-12.0); Hematocrit 47.6 % (42.0-52.0); Hemoglobin 15.1 g/dL (14.1-18.0); Lymphocytes # 3.5 K/mm3 (0.7-4.5); Mean Corpuscular HGB Conc 31.8 g/dL (31.8-35.4); Mean Corpuscular Hemoglobin 32.7 pg (27.0-31.2); Mean Corpuscular Volume 102.8 fl (80-94); Mean Platelet Volume 8.1 fl (7.4-10.4); Monocytes # 0.7 K/mm3 (0.1-1.0); Monocytes % 9.2 % (1.7-9.3); Neutrophils # 3.2 K/mm3 (1.8-7.8); Neutrophils % 41.2 % (37.0-80.0); Platelet Count 220 K/mm3 (142-424); Red Blood Count 4.63 M/mm3 (4.60-6.20); Red Cell Distribution Width 13.9 % (11.5-17.5); White Blood Count 7.7 K/mm3 (4.8-10.8)
[2021-11-04 10:41] LABS: Chloride 104 mmol/L (98-107); Potassium 3.9 mmoL/L (3.5-5.1); Sodium 136 mmol/L (136-145)
[2021-11-04 10:44] LABS: Alanine Aminotransferase 23 U/L (12-78); Albumin Level 3.8 g/dl (3.5-5.0); Albumin/Globulin Ratio 1.5 (1.1-1.8); Alkaline Phosphatase 82 U/L (38-126); Anion Gap 7.9 mEq/L (5-15); Aspartate Amino Transferase 30 U/L (17-59); Bilirubin,Total 0.7 mg/dl (0.2-1.3); Blood Urea Nitrogen 22 mg/dl (9-20); Carbon Dioxide 28 mmol/L (22.0-30.0); Creatinine Clearance Estimated 53 mL/min (50-200); Estimated Glomerular Filt Rate 49 ml/min (>60); GFR (African American) 59 ML/MIN (>60); Globulin 2.5 g/dL (1.3-3.2); Total Protein,Serum 6.3 g/dl (6.3-8.2)
[2021-11-04 10:45] LABS: Calcium 8.3 mg/dl (8.4-10.2); Glucose 90 mg/dl (74-100)
[2021-11-05 14:14] LABS: Immunoglobulin A, Qn 244 mg/dL (61-437); Immunoglobulin G, Qn 760 mg/dL (603-1613); Immunoglobulin M, Qn 17 mg/dL (15-143)
[2021-11-08 15:11] LABS: Albumin 3.2 g/dL (2.9-4.4); Alpha-1-Globulin 0.2 g/dL (0.0-0.4); Alpha-2-Globulin 0.9 g/dL (0.4-1.0); Gamma Globulin 0.7 g/dL (0.4-1.8); Protein, Total 6.1 g/dL (6.0-8.5)
[2021-12-08 20:53] LABS: Free Kappa Lt Chains 20.9
[2021-12-08 20:54] LABS: Free Lambda Lt Chains 11.4
== END 2021-11-04 10:25 | disposition home or self-care (01) ==
LOC: INF 10:02
PROVIDERS: PCP Family Medicine; Visit Provider Internal Medicine Medical Oncology
DX: C90.00 Multiple myeloma not having achieved remission (principal); Z45.2 Encounter for adjustment and management of vascular access device
CPT/HCPCS: 80053; 82784; 83883; 84155; 84165; 85025; 86334; J1642

== ENCOUNTER 2021-12-16 09:51 | Outpatient (CLI) | payer MEDICARE, BC, SELFPAY | END 2021-12-16 10:05 | disposition home or self-care (01) | LOC: INF 09:52 | PROVIDERS: PCP Family Medicine; Visit Provider Internal Medicine Medical Oncology | DX: C90.00 Multiple myeloma not having achieved remission (principal); Z45.2 Encounter for adjustment and management of vascular access device | CPT/HCPCS: 96523; J1642 ==

== ENCOUNTER → 2022-01-11 10:58 | Outpatient (POV) | payer MEDICARE, BC, SELFPAY | PROVIDERS: Visit Provider Dermatology | DX: Z00.00 Encounter for general adult medical examination without abnormal findings (principal) ==

== ENCOUNTER 2022-01-27 10:01 | Outpatient (CLI) | payer MEDICARE, BC, SELFPAY ==
[2022-01-27 10:07] VITALS: BMI 29.3
[2022-01-27 10:34] LABS: Basophils # 0.1 K/mm3 (0-0.2); Basophils % 1.5 % (0.1-2.0); Eosinophils # 0.3 K/mm3 (0.0-0.4); Eosinophils % 3.5 % (0.1-12.0); Hemoglobin 15.6 g/dL (14.1-18.0); Lymphocytes # 4.1 K/mm3 (0.7-4.5); Lymphocytes % 49.3 % (10-50); Mean Corpuscular HGB Conc 33.2 g/dL (31.8-35.4); Mean Corpuscular Hemoglobin 32.9 pg (27.0-31.2); Mean Corpuscular Volume 99.3 fl (80-94); Mean Platelet Volume 8.5 fl (7.4-10.4); Monocytes # 0.7 K/mm3 (0.1-1.0); Monocytes % 8.2 % (1.7-9.3); Neutrophils # 3.2 K/mm3 (1.8-7.8); Neutrophils % 37.6 % (37.0-80.0); Platelet Count 183 K/mm3 (142-424); Red Blood Count 4.74 M/mm3 (4.60-6.20); Red Cell Distribution Width 14.1 % (11.5-17.5); White Blood Count 8.4 K/mm3 (4.8-10.8)
[2022-01-27 10:42] LABS: Chloride 104 mmol/L (98-107)
[2022-01-27 10:43] LABS: Potassium 3.7 mmoL/L (3.5-5.1); Sodium 138 mmol/L (136-145)
[2022-01-27 10:45] LABS: Alanine Aminotransferase 21 U/L (12-78); Aspartate Amino Transferase 31 U/L (17-59); Blood Urea Nitrogen 22 mg/dl (9-20); Creatinine Clearance Estimated 55 mL/min (50-200); Estimated Glomerular Filt Rate 49 ml/min (>60); GFR (African American) 59 ML/MIN (>60)
[2022-01-27 10:46] LABS: Albumin Level 3.7 g/dl (3.5-5.0); Albumin/Globulin Ratio 1.4 (1.1-1.8); Alkaline Phosphatase 77 U/L (38-126); Anion Gap 9.7 mEq/L (5-15); Bilirubin,Total 0.8 mg/dl (0.2-1.3); Calcium 9.1 mg/dl (8.4-10.2); Carbon Dioxide 28 mmol/L (22.0-30.0); Globulin 2.6 g/dL (1.3-3.2); Glucose 98 mg/dl (74-100); Total Protein,Serum 6.3 g/dl (6.3-8.2)
[2022-01-28 13:12] LABS: Albumin 3.4 g/dL (2.9-4.4); Alpha-1-Globulin 0.2 g/dL (0.0-0.4); Alpha-2-Globulin 0.8 g/dL (0.4-1.0); Gamma Globulin 0.6 g/dL (0.4-1.8); Protein, Total 5.9 g/dL (6.0-8.5)
[2022-01-28 14:13] LABS: Immunoglobulin A, Qn 291 mg/dL (61-437); Immunoglobulin G, Qn 759 mg/dL (603-1613); Immunoglobulin M, Qn 13 mg/dL (15-143)
[2022-01-29 20:46] LABS: Free Kappa Lt Chains 20.3; Free Lambda Lt Chains 11.3
== END 2022-01-27 11:13 | disposition home or self-care (01) ==
PROVIDERS: PCP Family Medicine; Visit Provider Internal Medicine Medical Oncology
DX: C91.10 Chronic lymphocytic leukemia of B-cell type not having achieved remission (principal); Z45.2 Encounter for adjustment and management of vascular access device
CPT/HCPCS: 36591; 80053; 82784; 83883; 84155; 84165; 85025; 86334; J1642

== ENCOUNTER → 2022-02-07 12:19 | Outpatient (CLI) | payer MEDICARE, BC, SELFPAY ==
--- NOTE | 2022-02-07 12:24 | XR_ITS ---
FINAL REPORT CLINICAL HISTORY: WHEEZES,COUGH,BRONCHITIS x1 week COMPARISON: April 12 2016 FINDINGS: Two views of the chest were obtained. A left subclavian chest port is stable. The heart size and pulmonary vascularity are within normal limits. The mediastinum is normal. There is mild left lung base atelectasis or scarring. There is no pneumothorax. There are postoperative changes from right shoulder arthroplasty. IMPRESSION: Stable left subclavian chest port. Mild left lung base atelectasis or scarring. Reviewed, Interpreted and Dictated by Rodolfo Camarena III, MD Transcribed by Cari Caba Authenticated and [facility]
== END ==
PROVIDERS: PCP Family Medicine; Visit Provider Nurse Practitioner
DX: J40 Bronchitis, not specified as acute or chronic (principal); R06.2 Wheezing; R05.9 Cough, unspecified
CPT/HCPCS: 71046

== ENCOUNTER → 2022-02-22 10:51 | Outpatient (POV) | payer MEDICARE, BC, SELFPAY | PROVIDERS: Visit Provider Dermatology | DX: Z00.00 Encounter for general adult medical examination without abnormal findings (principal) ==

== ENCOUNTER 2022-03-09 10:19 | Outpatient (CLI) | payer MEDICARE, BC, SELFPAY | END 2022-03-09 10:39 | disposition home or self-care (01) | LOC: INF 10:20 | PROVIDERS: PCP Family Medicine; Visit Provider Internal Medicine Medical Oncology | DX: D46.9 Myelodysplastic syndrome, unspecified (principal); Z45.2 Encounter for adjustment and management of vascular access device | CPT/HCPCS: 96523; J1642 ==

== ENCOUNTER 2022-04-28 12:32 | Outpatient (CLI) | payer MEDICARE, BC, SELFPAY ==
[2022-04-28 12:41] VITALS: BMI 29.7
[2022-04-28 13:32] LABS: Alanine Aminotransferase 26 U/L (12-78); Albumin Level 3.6 g/dl (3.5-5.0); Albumin/Globulin Ratio 1.5 (1.1-1.8); Alkaline Phosphatase 85 U/L (38-126); Anion Gap 9.7 mEq/L (5-15); Aspartate Amino Transferase 33 U/L (17-59); Blood Urea Nitrogen 19 mg/dl (9-20); Carbon Dioxide 28 mmol/L (22.0-30.0); Chloride 105 mmol/L (98-107); Creatinine Clearance Estimated 51 mL/min (50-200); Estimated Glomerular Filt Rate 45 ml/min (>60); GFR (African American) 55 ML/MIN (>60); Globulin 2.4 g/dL (1.3-3.2); Glucose 138 mg/dl (74-100); Potassium 3.7 mmoL/L (3.5-5.1); Sodium 139 mmol/L (136-145)
[2022-04-28 13:37] LABS: Basophils # 0.1 K/mm3 (0-0.2); Basophils % 0.6 % (0.1-2.0); Eosinophils # 0.1 K/mm3 (0.0-0.4); Eosinophils % 1.4 % (0.1-12.0); Hematocrit 46.5 % (42.0-52.0); Hemoglobin 14.7 g/dL (14.1-18.0); Lymphocytes # 3.4 K/mm3 (0.7-4.5); Mean Corpuscular HGB Conc 31.5 g/dL (31.8-35.4); Mean Corpuscular Hemoglobin 32.5 pg (27.0-31.2); Mean Corpuscular Volume 103.1 fl (80-94); Mean Platelet Volume 8.2 fl (7.4-10.4); Monocytes # 0.5 K/mm3 (0.1-1.0); Monocytes % 6.5 % (1.7-9.3); Neutrophils # 3.2 K/mm3 (1.8-7.8); Neutrophils % 44.4 % (37.0-80.0); Platelet Count 180 K/mm3 (142-424); Red Blood Count 4.51 M/mm3 (4.60-6.20); Red Cell Distribution Width 14.3 % (11.5-17.5); White Blood Count 7.3 K/mm3 (4.8-10.8)
[2022-04-30 21:16] LABS: Free Kappa Lt Chains 17.9; Free Lambda Lt Chains 10.7
[2022-04-30 21:17] LABS: Immunoglobulin A, Qn 289; Immunoglobulin G, Qn 659
[2022-05-02 15:10] LABS: Albumin 3.5 g/dL (2.9-4.4); Alpha-1-Globulin 0.2 g/dL (0.0-0.4); Alpha-2-Globulin 0.6 g/dL (0.4-1.0); Gamma Globulin 0.5 g/dL (0.4-1.8); Immunoglobulin M, Qn 14 mg/dL (15-143); Protein, Total 5.7 g/dL (6.0-8.5)
== END 2022-04-28 13:00 | disposition home or self-care (01) ==
LOC: INF 12:34
PROVIDERS: PCP Family Medicine; Visit Provider Internal Medicine Medical Oncology
DX: C91.10 Chronic lymphocytic leukemia of B-cell type not having achieved remission (principal); Z45.2 Encounter for adjustment and management of vascular access device
CPT/HCPCS: 36591; 80053; 82784; 83883; 84155; 84165; 85025; 86334; J1642

== ENCOUNTER → 2022-05-19 11:03 | Outpatient (CLI) | payer MEDICARE, BC, SELFPAY ==
--- NOTE | 2022-05-19 11:05 | CA_ITS ---
APPROVED REPORT EXAM: Comprehensive 2D, Doppler, and color-flow Echocardiogram Broadcaster: Mirian Long CRT Ht: 5 ft 9 in Wt: 197lbs BSA: 2.05 BP: 120/84 mmHg Indications: Abn EKG 2D Dimensions LVOT 1.80 cm (M/F) 1.5-2.5 LA Volume 18.70 mL LA Volume Index 9.10 mL/m2 (M/F) 16-34 M-Mode Dimensions RVDd 2.65 cm (0.9-2.6) LA Diam 2.73 cm (1.9-4.0) LVDd 4.04 cm (3.5-5.7) Ao Diam 3.82 cm (2.0-3.7) LVDs 2.61 cm (3.5-5.7) IVSd 1.57 cm (0.6-1.1) PWd 0.57 cm (0.6-1.1) EF (Teich) 65.40% FS 35.40% EDV (Teich) 71.70 mL TAPSE 2.86 (<1.7) ESV (Teich) 24.80 mL LV Diastology E Decel Time 200.00 (160-240 msec) E/A Ratio 0.65 MED E' 6.50 (< 7 cm/sec) MED A' 10.90 cm/s E'/MED E' Ratio 7.11 (>14) LAT E' 7.60 (<10 cm/sec) LAT A' 9.20 cm/s E/LAT E' Ratio 6.08 (>14) Aortic Valve LVOT Max 89.00 (70-110 cm/s) LVOT VTI 22.94 cm AoV Peak Patricio. 130.00 (50-130 cm/s) AI PHT 380.00 ms AO Peak GR. 6.80 mmHg AO Mean GR. 3.60 (<5 mmHg) AO VTI 27.08 (18-25 cm) GLENROY (VTI) 2.16 (2.5-4.5 cm2) Mitral Valve MV A Velocity 71.00 (40-130 cm/s) E/A Ratio 0.65 MV Decel. Time 200.00 (160-240 ms) Pulmonary Valve PV Peak Velocity 118.00 (50-150 cm/s) Tricuspid Valve TR P. Velocity 210.00 cm/s RAP Estimate 10.00 mmHg RVSP 27.70 mmHg Left Ventricle Left atrium is mildly enlarged, left ventricle is normal size mild concentric left ventricular hypertrophy, estimated ejection fraction 55% with no regional wall motion abnormality, grade 1 diastolic dysfunction seen without tissue Doppler evidence of raise left atrial pressure. Right Ventricle Right atrium and right ventricle are mildly enlarged with normal contractility. Aortic Valve Aortic valve is thickened and calcified without Doppler evidence of aortic stenosis, there is trace aortic insufficiency. Mitral Valve Mitral valve leaflets are minimally thickened, there is mild mitral regurgitation. Tricuspid Valve Tricuspid valve grossly normal, there is mild tricuspid regurgitation, tricuspid regurgitation jet velocity is inadequate for calculation of the right ventricular systolic pressure. Pulmonic Valve Pulmonic valve is poorly visualized. Great Vessels Aortic root is normal size. Inferior vena cava is poorly visualized. Pericardium No significant pericardial effusion noted. Conclusion 1. Biatrial enlargement, normal left ventricular size, mild concentric left ventricular hypertrophy, estimated ejection fraction 55% with no regional wall motion abnormality, grade 1 diastolic dysfunction seen without tissue Doppler evidence of raise left atrial pressure. 2. Mildly enlarged right ventricle with normal contractility. 3. Thickened and calcified aortic valve without Doppler evidence of aortic stenosis, there is trace aortic insufficiency. 4. Mild mitral and tricuspid regurgitation. 5. No significant pericardial effusion noted. 6. Inferior vena cava is poorly visualized. Electronically signed by : Andi Esteves MD 05/20/2022 10:24:08
== END ==
PROVIDERS: PCP Family Medicine; Visit Provider Family Medicine
DX: R94.31 Abnormal electrocardiogram [ECG] [EKG] (principal)
CPT/HCPCS: 93306

== ENCOUNTER 2022-06-08 10:45 | Outpatient (CLI) | payer MEDICARE, BC, SELFPAY | END 2022-06-08 11:00 | disposition home or self-care (01) | LOC: INF 10:46 | PROVIDERS: PCP Family Medicine; Visit Provider Internal Medicine Medical Oncology | DX: Z45.2 Encounter for adjustment and management of vascular access device (principal) | CPT/HCPCS: 96523; J1642 ==

== ENCOUNTER 2022-07-22 09:57 | Outpatient (CLI) | payer MEDICARE, BC, SELFPAY ==
[2022-07-22 10:04] VITALS: BMI 29.0
[2022-07-22 10:31] LABS: Basophils # 0.1 K/mm3 (0-0.2); Basophils % 0.9 % (0.1-2.0); Eosinophils # 0.2 K/mm3 (0.0-0.4); Hematocrit 47.7 % (42.0-52.0); Hemoglobin 15.5 g/dL (14.1-18.0); Lymphocytes # 4.2 K/mm3 (0.7-4.5); Lymphocytes % 46.7 % (10-50); Mean Corpuscular HGB Conc 32.4 g/dL (31.8-35.4); Mean Corpuscular Hemoglobin 32.3 pg (27.0-31.2); Mean Corpuscular Volume 99.7 fl (80-94); Mean Platelet Volume 8.1 fl (7.4-10.4); Monocytes # 0.6 K/mm3 (0.1-1.0); Monocytes % 6.9 % (1.7-9.3); Neutrophils # 3.9 K/mm3 (1.8-7.8); Neutrophils % 43.5 % (37.0-80.0); Platelet Count 179 K/mm3 (142-424); Red Blood Count 4.79 M/mm3 (4.60-6.20); Red Cell Distribution Width 13.7 % (11.5-17.5)
[2022-07-22 10:46] LABS: Chloride 102 mmol/L (98-107); Potassium 3.1 mmoL/L (3.5-5.1); Sodium 142 mmol/L (136-145)
[2022-07-22 10:49] LABS: Alanine Aminotransferase 24 U/L (12-78); Albumin Level 3.6 g/dl (3.5-5.0); Albumin/Globulin Ratio 1.5 (1.1-1.8); Alkaline Phosphatase 87 U/L (38-126); Anion Gap 10.1 mEq/L (5-15); Aspartate Amino Transferase 32 U/L (17-59); Blood Urea Nitrogen 22 mg/dl (9-20); Carbon Dioxide 33 mmol/L (22.0-30.0); Creatinine Clearance Estimated 53 mL/min (50-200); Estimated Glomerular Filt Rate 49 ml/min (>60); GFR (African American) 59 ML/MIN (>60); Globulin 2.4 g/dL (1.3-3.2)
[2022-07-22 10:50] LABS: Calcium 9.2 mg/dl (8.4-10.2); Glucose 89 mg/dl (74-100)
[2022-07-25 16:17] LABS: Albumin 3.3 g/dL (2.9-4.4); Alpha-1-Globulin 0.2 g/dL (0.0-0.4); Alpha-2-Globulin 0.7 g/dL (0.4-1.0); Protein, Total 5.8 g/dL (6.0-8.5)
[2022-07-26 13:28] LABS: Immunoglobulin A, Qn 331 mg/dL (61-437); Immunoglobulin G, Qn 677 mg/dL (603-1613); Immunoglobulin M, Qn 19 mg/dL (15-143)
[2022-08-07 19:48] LABS: Free Kappa Lt Chains 26.8; Free Lambda Lt Chains 11.9
== END 2022-07-22 10:12 | disposition home or self-care (01) ==
LOC: INF 09:58
PROVIDERS: PCP Family Medicine; Visit Provider Internal Medicine Medical Oncology
DX: C90.00 Multiple myeloma not having achieved remission (principal); Z45.2 Encounter for adjustment and management of vascular access device
CPT/HCPCS: 36591; 80053; 82784; 83883; 84155; 84165; 85025; 86334; J1642

== ENCOUNTER → 2022-08-30 11:00 | Outpatient (CLI) | payer MEDICARE, BC, SELFPAY ==
[2022-08-30 18:42] LABS: Alanine Aminotransferase 20 U/L (12-78); Albumin Level 3.7 g/dl (3.5-5.0); Albumin/Globulin Ratio 1.5 (1.1-1.8); Alkaline Phosphatase 85 U/L (38-126); Anion Gap 9.8 mEq/L (5-15); Aspartate Amino Transferase 28 U/L (17-59); Blood Urea Nitrogen 28 mg/dl (9-20); Calcium 9.6 mg/dl (8.4-10.2); Carbon Dioxide 30 mmol/L (22.0-30.0); Chloride 103 mmol/L (98-107); Chol/HDL Ratio 3.4 (1-3.5); Cholesterol 124 mg/dl (140-200); Estimated Glomerular Filt Rate 42 ml/min (>60); GFR (African American) 51 ML/MIN (>60); Globulin 2.5 g/dL (1.3-3.2); Glucose 100 mg/dl (74-100); HDL Cholesterol 36 mg/dl (40-60); Potassium 3.8 mmoL/L (3.5-5.1); Sodium 139 mmol/L (136-145); Total Protein,Serum 6.2 g/dl (6.3-8.2); Triglycerides 98 mg/dl (30-150); VLDL Cholesterol 20 mg/dL (0-40)
[2022-08-30 18:53] LABS: Direct LDL Cholesterol 67.65 mg/dL (100-129)
== END ==
PROVIDERS: PCP Nurse Practitioner; Visit Provider Nurse Practitioner
DX: E78.5 Hyperlipidemia, unspecified (principal); I10 Essential (primary) hypertension; I63.9 Cerebral infarction, unspecified
CPT/HCPCS: 80053; 80061

== ENCOUNTER 2022-09-02 10:43 | Outpatient (CLI) | payer MEDICARE, BC, SELFPAY | END 2022-09-02 11:10 | disposition home or self-care (01) | LOC: INF 10:45 | PROVIDERS: PCP Nurse Practitioner; Visit Provider Internal Medicine Medical Oncology | DX: Z45.2 Encounter for adjustment and management of vascular access device (principal) | CPT/HCPCS: 96523; J1642 ==

== ENCOUNTER 2022-10-13 10:35 | Outpatient (CLI) | payer MEDICARE, BC, SELFPAY ==
[2022-10-13 10:43] VITALS: BMI 31.0
[2022-10-13 11:28] LABS: Basophils # 0.1 K/mm3 (0-0.2); Basophils % 0.9 % (0.1-2.0); Eosinophils # 0.2 K/mm3 (0.0-0.4); Eosinophils % 2.2 % (0.1-12.0); Hematocrit 48.3 % (42.0-52.0); Hemoglobin 15.8 g/dL (14.1-18.0); Lymphocytes # 3.9 K/mm3 (0.7-4.5); Lymphocytes % 52.7 % (10-50); Mean Corpuscular HGB Conc 32.7 g/dL (31.8-35.4); Mean Corpuscular Hemoglobin 31.9 pg (27.0-31.2); Mean Corpuscular Volume 97.6 fl (80-94); Mean Platelet Volume 8.7 fl (7.4-10.4); Monocytes # 0.6 K/mm3 (0.1-1.0); Monocytes % 8.3 % (1.7-9.3); Neutrophils # 2.7 K/mm3 (1.8-7.8); Neutrophils % 35.8 % (37.0-80.0); Platelet Count 161 K/mm3 (142-424); Red Blood Count 4.94 M/mm3 (4.60-6.20); Red Cell Distribution Width 14.3 % (11.5-17.5); White Blood Count 7.5 K/mm3 (4.8-10.8)
[2022-10-13 11:33] LABS: Alanine Aminotransferase 26 U/L (12-78); Albumin Level 3.7 g/dl (3.5-5.0); Albumin/Globulin Ratio 1.5 (1.1-1.8); Alkaline Phosphatase 80 U/L (38-126); Aspartate Amino Transferase 32 U/L (17-59); Bilirubin,Total 1.1 mg/dl (0.2-1.3); Blood Urea Nitrogen 23 mg/dl (9-20); Calcium 8.8 mg/dl (8.4-10.2); Carbon Dioxide 29 mmol/L (22.0-30.0); Chloride 107 mmol/L (98-107); Creatinine Clearance Estimated 50 mL/min (50-200); Estimated Glomerular Filt Rate 45 ml/min (>60); GFR (African American) 54 ML/MIN (>60); Globulin 2.5 g/dL (1.3-3.2); Glucose 96 mg/dl (74-100); Sodium 140 mmol/L (136-145); Total Protein,Serum 6.2 g/dl (6.3-8.2)
[2022-10-13 11:36] LABS: Anion Gap 7.3 mEq/L (5-15); Potassium 3.3 mmoL/L (3.5-5.1)
[2022-10-13 11:45] LABS: MANUAL DIFFERENTIAL MANUAL DIFFERENTIAL (MANUAL DIFF)
[2022-10-13 12:08] LABS: Eosinophils % 1 % (0-3); Lymphocytes % 55 % (10-50); Monocytes % 9 % (2-9); Neutrophils % 35 % (42-76); Total Cells Counted 100
[2022-10-13 12:09] LABS: Platelet Estimate Normal; RBC Morphology Normal
[2022-10-14 16:03] LABS: Albumin 3.4 g/dL (2.9-4.4); Alpha-1-Globulin 0.2 g/dL (0.0-0.4); Alpha-2-Globulin 0.8 g/dL (0.4-1.0); Gamma Globulin 0.6 g/dL (0.4-1.8)
[2022-10-17 13:23] LABS: Immunoglobulin A, Qn 358 mg/dL (61-437); Immunoglobulin G, Qn 745 mg/dL (603-1613); Immunoglobulin M, Qn 15 mg/dL (15-143)
[2022-10-18 22:56] LABS: Free Kappa Lt Chains 22.6; Free Lambda Lt Chains 11.7
== END 2022-10-13 11:18 | disposition home or self-care (01) ==
LOC: INF 10:37
PROVIDERS: PCP Family Medicine; Visit Provider Internal Medicine Medical Oncology
DX: C90.00 Multiple myeloma not having achieved remission (principal); Z45.2 Encounter for adjustment and management of vascular access device
CPT/HCPCS: 36591; 80053; 82784; 83883; 84155; 84165; 85007; 85025; 86334; J1642

== ENCOUNTER 2022-11-25 11:02 | Outpatient (CLI) | payer MEDICARE, BC, SELFPAY | END 2022-11-25 11:20 | disposition home or self-care (01) | LOC: INF 11:04 | PROVIDERS: PCP Family Medicine; Visit Provider Internal Medicine Medical Oncology | DX: Z45.2 Encounter for adjustment and management of vascular access device (principal) | CPT/HCPCS: 96523; J1642 ==

== ENCOUNTER 2023-01-19 10:00 | Outpatient (CLI) | payer MEDICARE, BC, SELFPAY ==
[2023-01-19 10:03] VITALS: BMI 29.7
[2023-01-19 10:41] LABS: Chloride 100 mmol/L (98-107); Sodium 139 mmol/L (136-145)
[2023-01-19 10:42] LABS: Potassium 3.7 mmoL/L (3.5-5.1)
[2023-01-19 10:44] LABS: Alanine Aminotransferase 27 U/L (12-78); Albumin Level 3.3 g/dl (3.5-5.0); Albumin/Globulin Ratio 1.2 (1.1-1.8); Alkaline Phosphatase 71 U/L (38-126); Anion Gap 11.7 mEq/L (5-15); Aspartate Amino Transferase 30 U/L (17-59); Bilirubin,Total 0.6 mg/dl (0.2-1.3); Blood Urea Nitrogen 19 mg/dl (9-20); Carbon Dioxide 31 mmol/L (22.0-30.0); Creatinine Clearance Estimated 54 mL/min (50-200); Estimated Glomerular Filt Rate 49 ml/min (>60); GFR (African American) 59 ML/MIN (>60); Globulin 2.7 g/dL (1.3-3.2)
[2023-01-19 10:45] LABS: Basophils % 0.5 % (0.1-2.0); Calcium 8.6 mg/dl (8.4-10.2); Eosinophils # 0.3 K/mm3 (0.0-0.4); Eosinophils % 3.8 % (0.1-12.0); Glucose 84 mg/dl (74-100); Hematocrit 44.5 % (42.0-52.0); Lymphocytes # 3.4 K/mm3 (0.7-4.5); Lymphocytes % 43.4 % (10-50); Mean Corpuscular HGB Conc 33.7 g/dL (31.8-35.4); Mean Corpuscular Hemoglobin 33.1 pg (27.0-31.2); Mean Corpuscular Volume 98.2 fl (80-94); Mean Platelet Volume 9.1 fl (7.4-10.4); Monocytes # 0.6 K/mm3 (0.1-1.0); Monocytes % 7.4 % (1.7-9.3); Neutrophils # 3.5 K/mm3 (1.8-7.8); Platelet Count 202 K/mm3 (142-424); Red Blood Count 4.53 M/mm3 (4.60-6.20); White Blood Count 7.8 K/mm3 (4.8-10.8)
[2023-01-20 16:14] LABS: Albumin 3.2 g/dL (2.9-4.4); Alpha-1-Globulin 0.2 g/dL (0.0-0.4); Alpha-2-Globulin 0.8 g/dL (0.4-1.0); Gamma Globulin 0.6 g/dL (0.4-1.8); Immunoglobulin A, Qn 380 mg/dL (61-437); Immunoglobulin G, Qn 668 mg/dL (603-1613); Immunoglobulin M, Qn 13 mg/dL (15-143); Protein, Total 5.8 g/dL (6.0-8.5)
[2023-02-19 20:55] LABS: Free Kappa Lt Chains 24.6; Free Lambda Lt Chains 14.1
== END 2023-01-19 10:25 | disposition home or self-care (01) ==
LOC: INF 10:01
PROVIDERS: PCP Family Medicine; Visit Provider Internal Medicine Medical Oncology
DX: Z85.79 Personal history of other malignant neoplasms of lymphoid, hematopoietic and related tissues (principal); Z45.2 Encounter for adjustment and management of vascular access device
CPT/HCPCS: 36591; 80053; 82784; 83883; 84155; 84165; 85025; 86334; J1642

== ENCOUNTER 2023-03-03 10:21 | Outpatient (CLI) | payer MEDICARE, BC, SELFPAY | END 2023-03-03 10:40 | disposition home or self-care (01) | LOC: INF 10:22 | PROVIDERS: PCP Family Medicine; Visit Provider Internal Medicine Medical Oncology | DX: Z85.79 Personal history of other malignant neoplasms of lymphoid, hematopoietic and related tissues (principal); Z45.2 Encounter for adjustment and management of vascular access device | CPT/HCPCS: 96523; J1642 ==